=== PATIENT | female | born 1965 | race African-American/Black ===

== ENCOUNTER 2025-03-15 07:47 | Outpatient (CLI) | payer OTHER | END 2025-03-15 07:48 | disposition home or self-care (01) | LOC: CSHCT 07:47 | PROVIDERS: ATTEND Family Medicine | DX: Z12.2 Encounter for screening for malignant neoplasm of respiratory organs (principal); F17.210 Nicotine dependence, cigarettes, uncomplicated | CPT/HCPCS: 71271 ==